=== PATIENT | female | born 1970 | race Hispanic/Latino ===

== ENCOUNTER 2020-03-27 14:34 | Outpatient (CLI) | payer OTHER ==
--- NOTE | 2020-03-27 14:53 | RAD ---
Lumbar spine: 2 views INDICATIONS:Disability exam COMPARISON:01/02/2003 FINDINGS: Vertebral bodies maintain height. There is a grade 1 anterolisthesis at L4-5. Mild anterior wedging to T12 vertebra with loss of anterior height. Minimal wedging of T11. Degenerat domo spurring at both of these levels. Loss of disc space at L4-5 and L5-S1. Slight curvature to the right in the AP projection. Mild degenerative spurring. Facet hypertrophy. No soft tissue abnormality. IMPRESSION: Grade 1 anterior listhesis at L4-5. Degenerative changes as described.
== END 2020-03-27 14:35 | disposition home or self-care (01) ==
LOC: BICRAD 14:34
PROVIDERS: ATTEND Internal Medicine
DX: Z02.71 Encounter for disability determination (principal); M43.16 Spondylolisthesis, lumbar region; M47.816 Spondylosis without myelopathy or radiculopathy, lumbar region; M47.814 Spondylosis without myelopathy or radiculopathy, thoracic region
CPT/HCPCS: 72100